=== PATIENT | female | born 1945 | race Caucasian/White ===

== ENCOUNTER 2018-12-14 19:35 | Emergency (ER) | payer MEDICARE, SELFPAY ==
[2018-12-14 19:36] VITALS: BP 142/78; PULSE 121; RESP 18; TEMP 36.3; O2SAT 95; BMI 24.3
--- NOTE | 2018-12-14 20:19 | ED.VISSUMM ---
- ER Visit Summary Date of Service: 12/14/18 Chief Complaint: Laceration History of Present Illness: The patient is a 73 F who cut her right index finger with a kitchen knife prior to arrival. She is left-hand dominant. She suffered a laceration to the right index finger at the DIP joint. She is not on anticoagulants. She is unsure of her last tetanus update. Physical Examination: Vital signs remarkable for heart rate of 121 in triage. Patient sitting upright in bed no acute distress. Right upper extremity examination was a 1 similar laceration of the palmar surface of the hand, index finger DIP joint. She has full range of motion of the digit. Normal cap refill and sensation are noted distally. Test Results: [] Emergency Department Course and Treatment: Right index finger was anesthetized with a digital block, 2 cc 1% lidocaine. Wound is irrigated and closed with 6 simple interrupted sutures of 5-0 nylon. Dressing is applied and wound care as discussed. Tetanus update is provided. Patient is to have sutures removed in 7 days. Treatment Plan: [] Disposition: Discharge Impression: Right index finger laceration status post suture This note was generated with [employer] dictation software. It may contain incorrect words, spelling, and punctuation that were not noted in review of the chart prior to signing ED Disposition - Plan for ED Patient: Disposition: Home or Assisted Living Instructions: ED Laceration Hand Referrals: Monik Rowley MD [Primary Care Provider] - 7 Days for suture removal
[2018-12-14] MEDS: Diphth,Pertuss(Acell),Tet Vac 0.5 ML Vial IM (20:21)
[2018-12-14 20:42] VITALS: RESP 16
== END 2018-12-14 20:44 | disposition home or self-care (01) ==
PROVIDERS: Emergency Provider Emergency Medicine; Family Provider Internal Medicine; PCP Internal Medicine
DX: S61.210A Laceration without foreign body of right index finger without damage to nail, initial encounter (principal); W26.0XXA Contact with knife, initial encounter; Y93.9 Activity, unspecified; Y92.000 Kitchen of unspecified non-institutional (private) residence as the place of occurrence of the external cause; Y99.9 Unspecified external cause status
CPT/HCPCS: 12001; 90715; 99283

== ENCOUNTER → 2021-01-24 11:45 | Outpatient (CLI) | payer MEDICARE, SELFPAY ==
--- NOTE | 2021-01-24 | ASPS_PTH ---
PATIENT: BRADLEY ROTH LOC: [facility]#:[id number] AGE/SX: 79/F ROOM: RE01/24/[address]: Dr. Randy Brito MD : 1945 BED: DIS: SPEC #: [id number] RECD: 01/25/21 11:55 STATUS: PRISCA REPatricia #: [id number] KIRSTY: 01/24/21 00:[address]: Randy Brito DEPT: CYTOLOGY RECD BY: Joshua Nichols ENTERED: 01/25/21 12:13 SP TYPE: ASPIRATION OTHR DR: Dr. Monik Rowley MD Tissues: A - Thyroid gland, NOS B - Thyroid isthmus Procedures: Special Stain Group II Cytology Other HEADER OPERATION: Ultrasound-guided fine needle aspiration, left thyroid and isthmus PRE-OP DIAGNOSIS: Multinodular goiter TISSUE SUBMITTED: A ? Left thyroid slides x12, B ? Isthmus slides x 12 DIAGNOSIS CYTOLOGY A. Fine needle aspiration, left thyroid nodule (smears): Adequate for evaluation. Negative, consistent with benign follicular/colloid nodule. B. Fine needle aspiration, thyroid isthmus (smears): Adequate for evaluation. Negative, consistent with cystic benign follicular/colloid nodule. AM:lacey 01/26/2021 COMMENT Reference is made to the patient?s previous thyroid fine needle aspiration ([id number]) in which changes consistent with cellular and cystic colloid nodule are identified. CYTOLOGY STUDY Slides are reviewed. CYTOLOGY GROSS A - Received are 12 smears labeled with the patient's name and designated per the requisition as left thyroid. Submitted for staining. B - Received are 12 smears labeled with the patient's name and designated per the requisition as isthmus. Submitted for staining. / lacey 01/25/2021 TC:5 CPT: 60362 x2
== END ==
PROVIDERS: PCP Internal Medicine; Visit Provider Surgery
DX: E04.2 Nontoxic multinodular goiter (principal)
CPT/HCPCS: 88161; 88307; 88313

== ENCOUNTER → 2021-04-20 12:27 | Outpatient (CLI) | payer MEDICARE, SELFPAY ==
--- NOTE | 2021-04-20 12:29 | RAD_ITS ---
STUDY: BARIUM ENEMA. REASON FOR EXAM: Female, 75 years old. SCREENING FOR COLON CA. Incomplete colonoscopy. FLUOROSCOPY TIME (if supplied): ( 90 seconds ) minutes/seconds. 16 images were obtained. TECHNIQUE: A spot film was obtained. Following this, barium was introduced retrograde into the rectum. The entire colon was opacified. COMPARISON: None. FINDINGS: On the plasma table operator view, residual fecal material is seen in the rectosigmoid colon. There is gaseous distention of the colon. There is free flow of barium into the colon. The entire colon was opacified. No evidence of antegrade or retrograde obstruction to the flow of contrast. No mass lesion is seen. There is tortuosity of the sigmoid colon. RAD/Barium Enema w/Air Contrast IMPRESSION: Unremarkable barium enema. Electronically Signed: Quentin Patricia MD at 14:50 EDT , Service support ,
== END ==
PROVIDERS: PCP Internal Medicine; Referring Provider Surgery; Visit Provider Surgery
DX: Z12.11 Encounter for screening for malignant neoplasm of colon (principal)
CPT/HCPCS: 74280

== ENCOUNTER 2021-05-26 10:19 | Day surgery (SDC) | payer MEDICARE, SELFPAY ==
[2021-05-26 10:58] VITALS: BP 127/77; PULSE 87; RESP 16; TEMP 36.7; O2SAT 97; BMI 25.2
--- NOTE | 2021-05-26 11:00 | BI_ITS ---
SURGICAL BREAST SPECIMEN RADIOGRAPH CLINICAL: Document presence of tissue clip marker in biopsy specimen. FINDINGS: Specimen shows presence of tissue clip marker. Electronically Signed: Quentin Patricia MD at 12:41 EDT , Service support , BI/Breast Biopsy Specimen
[2021-05-26] MEDS: Lactated Ringers 1,000 ML 100 ML IV (11:02)
--- NOTE | 2021-05-26 11:42 | HP.PCM_ITS ---
History and Physical Date of Admission: 05/26/21 HISTORY AND PHYSICAL - BREAST COMPLAINT ? Sheila Perdue 1945 ? ? REFERRING PHYSICIAN: Monik Rowley MD ? CHIEF COMPLAINT: Intraductal papilloma (primary encounter diagnosis) ? HPI: The patient is a 75 year old female with a complaint of intraductal papilloma. Patient is status post an ultrasound-guided hand-held mammotome breast biopsy of her left breast at the 1 o'clock position which was completed on 04/14/2021. This biopsy result came back as portions of an intraductal papilloma with florid ductal hyperplasia. Patient initially had significant bruising which has subsequently resolved. ? ? PAST MEDICAL HISTORY PAST MEDICAL HISTORY Diagnosis Date ? Nontoxic multinodular goiter ? ? Osteoporosis, unspecified ? ? Unspecified hypothyroidism ? ? Vitamin D Deficiency 11/30/2009 ? ? PAST SURGICAL HISTORY PAST SURGICAL HISTORY Procedure Laterality Date ? COLONOSCOP W/ OR W/O BRSH SPEC ? ? Colonoscopy ? COLONOSCOP W/ OR W/O BRSH SPEC ? 04/16/2016 ? Colonoscopy ? COLONOSCOP W/ OR W/O BRSH SPEC ? 04/20/2021 ? aborted and sent for barium enema due to tortuosity o fcolon ? COLONOSCOPY & POLYPECTOMY ? 03/02/2004 ? hyperplastic polyp ? LIGATE FALLOPIAN TUBE ? ? ? Tubal ligation ? PAST SURGICAL HISTORY OF ? ? ? back surgery frankie placement x 2 ? PAST SURGICAL HISTORY OF ? ? ? [place] feet surgery ? TREAT ECTOPIC PREG,NON REMVAL ? ? ? Ectopic ? ? ? CURRENT MEDICATIONS Current Outpatient Medications Medication Sig Dispense Refill ? MULTIVITAMIN ORAL Take by mouth once daily. ? ? ? Ibandronate (BONIVA) 150 mg tablet Take 1 tablet by mouth once every month. Take in the am with full glass of water on an empty stomach; do NOT eat or lie down for next 30 minutes. 3 tablet 4 ? cholecalciferol (VITAMIN D3) 50 mcg (2,000 unit) tablet Take 1 tablet by mouth once daily. ? ? ? acetaminophen (ARTHRITIS PAIN RELIEF) 650 mg CR tablet Take 650 mg by dionne th every 8 hours as needed. ? ? ? levothyroxine (SYNTHROID) 50 mcg tablet Take one(1) tablet daily except half a pill on Sundays 90 tablet 3 ? ibuprofen (MOTRIN) 200 mg tablet Take 400 mg by mouth as needed. ? ? ? Calcium-Vitamin D3-Vitamin K (VIACTIV) 500-500-40 mg-unit-mcg chew Take 1 tablet by mouth once daily. Up to twice daily ? ? ? THERAPEUTIC MULTIVITAMIN TAB Take one(1) tablet daily. (Patient not taking: ) ? 0 ? No current facility-administered medications for this visit. ? ? ALLERGIES: Patient has no known allergies. ? PERSONAL HISTORY: SOCIAL HISTORY Social History ? Tobacco Use ? Smoking status: Never Smoker ? Smokeless tobacco: Never Used Vaping Use ? Vaping Use: Never used Substance Use Topics ? Alcohol use: No ? Drug use: Never ? FAMILY HISTORY: FAMILY HISTORY FAMILY HISTORY Problem Relation Age of Onset ? Colon Cancer Father ? ? other (malignant polyp) Brother ? ? REVIEW OF SYSTEMS: ?General:???The patient denies fatigue, denies weight loss, denies weight gain, denies feeling hot, and denies feelings of cold. ?Eyes: ?The patient denies glaucoma, denies eye injury/surgery, does not wear glasses or contacts. ?Ear/Nose/Throat: ?The patient denies allergies, denies hayfever, denies ear infections, and denies bloody noses. ?Cardiovascular: ?The patient denies chest pain, denies heart disease, denies high blood pressure,denies cardiac stent, denies prior heart attack, denies irregular heart beat, denies high cholesterol, ?denies poor circulation, denies heart failure, other cardiac issues, denies claudication, denies cold feet, denies peripheral arterial stent. ?Respiratory: ?The patient denies tuberculosis, denies pneumonia, denies frequent cough, denies pulmonary embolism, denies shortness of breath, and denies coughing up blood. ?Gastrointestinal: ?The patient denies difficulty swallowing, denies acid reflux, denies ulcers, denies vomiting, denies jaundice/hepatitis, denies gallbladder problems, denies black or tarry stools, denies hemorrhoids, denies bleeding from rectum, denies diverticulitis, denies constipation, denies diarrhea, denies loss of stool control, and denies hernias. ?Kidney/Bladder: ?The patient denies kidney stones, denies urine infections, and denies bloody urine. ?Skin: ?The patient denies a history of skin cancer, denies bleeding/changing moles, and denies a history of skin rash. ?Neurologic: ?The patient denies a history of epilepsy/convulsions, denies headaches, denies head/spinal injuries, and denies stroke/TIA. ?Psychiatric: ?The patient denies psychiatric medications, denies depression, and denies voices, denies substance abuse. ?Endocrine: ?The patient NOTES thyroid disorders, denies diabetes, and denies hormonal problems. ?Hematologic: ?The patient denies a history of bruising, denies bleeding, and denies anemia, denies blood clots. ?Infections: ?The patient denies a history of measles and mumps, denies rheumatic fever, and denies sexually transmitted diseases. ?Musculoskeletal: ?The patient denies back pain/injury, denies back problems, denies sciatica, denies knee/foot trouble, NOTES arthritis, or denies gout. ? ? When was patient's last Mammogram screening? 09/28/2020 ? PHYSICAL EXAMINATION: ? General: The patient is 75 year old female, well nourished, well hydrated in no acute distress. The patient is oriented to time, place, and person. ? VITALS: Pulse 119, temperature 36.5 ?C (97.7 ?F), SpO2 95 %. There is no height or weight on file to calculate BMI. ? HEENT: Normal cephalic, ataumatic, pupils are equally round, sclera are anicteric, mucous membranes are moist, oropharynx is clear. Neck has no masses, asymmetry or lymphadenopathy. Thyroid is unremarkable. ? Respiratory: Clear to auscultation and percussion. Normal respiratory excursion and pattern. ? Cardiac: Examination is regular rate and rhythm. ? Abdominal exam: Soft, nontender, with no palpable masses. No hepatosplenomegaly. No palpable hernias. ? Rectal exam: exam deferred Extremities: no clubbing, cyanosis or edema. No adenopathy. ? Breast: Visual inspection reveals no retractions, nipple inversion, or skin changes. Palpation of the right breast reveals no dominant or suspicious masses. Palpation of the left breast reveals no dominant or suspicious masses. Axillary exam demonstrates no suspicious masses in either the left or right axilla. There is no nipple discharge expressed from either the left or right breast. ? LABORATORY VALUES: As Noted ? RADIOLOGIC STUDIES: As Noted ? Assessment IMPRESSION: Intraductal papilloma (primary encounter diagnosis) ? PLAN: I plan to perform a stereotactic wire localization of the left breast with wire localization excisional breast biopsy in the OR.. The planned surgical procedure was discussed extensively with the patient. The risks, benefits, anticipated outcomes and possible complications were mentioned. My staff has also explained the procedure in understandable terms and the patient was given the option to take printed material concerning the planned procedure. The patient had the opportunity to ask questions concerning the planned procedure. The patient freely consents to the planned procedure. ? ? Diagnoses: (D36.9) Intraductal papilloma (primary encounter diagnosis) ? My findings have been communicated to Dr. Monik Rowley MD via shared medical record. This note will be forwarded to Dr. Monik Rowley MD. ? Return to Clinic: The patient is instructed to follow-up with me 1 week post operatively. ? COVID (Procedure Consent) Procedure Criteria ? Procedure Criteria: Yes Elective The surgeon/proceduralist and patient have discussed in detail the risk of exposure to and/or potential harm posed by the COVID-19 virus with having a surgery/procedure at this time versus the risk of? delaying the surgery/procedure. It is not possible to know either the risk of delaying the surgery or procedure or chance of getting an infection with perfect accuracy, but a joint decision was made between the patient and the surgeon/proceduralist ?to proceed at this time with the scheduled surgery/procedure as indicated on the consent form. ? ? Randy Brito III, MD I have re-examined the patient. There are no clinical changes since date of exam.
[2021-05-26] MEDS: Cefazolin 2 GM in 0.9% Normal Saline 100 ML IV (11:55)
--- NOTE | 2021-05-26 12:24 | BREAST_PTH ---
PATIENT: BRADLEY ROTH LOC: [facility] [place] U#:[id number] AGE/SX: 75/F ROOM: RE05/26/[address]: Dr. Randy Brito MD : 1945 BED: DIS: 05/26/2021 SPEC #: [id number] RECD: 05/26/21 12:29 STATUS: PRISCA REPatricia #: [id number] KIRSTY: 05/26/21 12:[address]: Randy Brito DEPT: SURGICAL PATHOLOGY RECD BY: Jerri Felipe ENTERED: 05/26/21 12:50 SP TYPE: BREAST OTHR DR: Dr. Monik Rowley MD Tissues: Left breast, NOS Procedures: Surgery Specimen Level V HEADER OPERATION: Excisional breast biopsy needle localization PRE-OP DIAGNOSIS: Left intraductal papilloma TISSUE SUBMITTED: Left intraductal papilloma, needle localization MICROSCOPIC DIAGNOSIS Left breast, excisional biopsy with needle localization: Changes consistent with previous biopsy site. Focal changes suggestive of intraductal papilloma adjacent to the previous biopsy site. Focal intraductal hyperplasia without atypia. Negative for malignancy. JALIL:lacey 05/31/2021 COMMENT Case has been reviewed in consultation with Dr. Ghotra who concurs with the above diagnosis. IDC:AM MICROSCOPIC DESCRIPTION Slides are reviewed. GROSS DESCRIPTION Received in fixative is one container labeled with the patient's name and designated left breast. The specimen consists of four irregular fragments of do-yellow fatty tissue ranging in size from 1 to 5 cm. The largest fragment contains a wire and a small ellipse of skin. The skin fragment measures 1 x 0.5 cm. No orientation is provided. Serial sections do not reveal distinct mass lesions. The specimen is serially sectioned and totally submitted in eight cassettes. / AM:lacey 05/29/21 TC:5 CPT: 43950
--- NOTE | 2021-05-26 12:26 | OP.PCM_ITS ---
Problems Associated Problem List Diagnoses (1) Intraductal papilloma: Report of Operation Date of Procedure: 05/26/21 Pre-Operative Diagnosis: Intraductal papilloma Post-Operative Diagnosis: Same Surgery/Procedure Performed:: 1. Stereotactic wire localization of intraductal papilloma 2. Wire localization excisional breast biopsy of an intraductal papilloma left side. Surgeon: Randy Brito math and science division chair: Irwin Livingston Type of Anesthesia: General Anesthesiologist: River Hogan Estimated Blood Loss (mL): < 25 cc Description of Procedure: Patient was brought into the mammography unit. Placed in the supine position. Left breast was brought down through the opening lateral to medial view was obtained. Clip was identified. ?15 degree views were obtained. I targeted on the clip. Prepped the breast with Betadine. Injected 1% lidocaine plain. Placed a needle and took 2 more stereo view showing the area to be adequately targeted. Patient was taken out standard mammograms were obtained and she was sent to the operating room. In the operating room she was placed in the supine position. Under excellent general anesthetic. Left breast was sterilely prepped and draped in the usual fashion. Local was injected. I made an elliptical incision around the previous biopsy site extended it both in a medial and lateral fashion. Dissected down removed the lesion identified the clip as well as the intraductal papilloma and sent all of this tissue to x-ray for confirmation. I inspected the general area no further abnormal tissue was identified. I brought the wound together with subcu of 2-0 Vicryl deep dermals with 3-0 Vicryl then a running 4-0 Monocryl. Steri-Strips were applied sterile dressings were applied and the patient tolerated the procedure well. X-rayed the specimen I had the clip as well as the wire into the specimen its elf. Admit VTE Documentation VTE Present on Admission: No VTE Mechan Device Prophylaxis: SCD's VTE Pharm Prophylaxis ordered?: No Reason prophylaxis not ordered:: Procedure Not Indicated
--- NOTE | 2021-05-26 12:32 | DCINST_ITS ---
Discharge Instructions Procedure Breast Biopsy Diet Discharge Diet: No restrictions Activity Discharge Activity: Return to Normal Activity May shower in (days): 3 Dressing / Incision Remove Dressing in: 3 days (leave Dermabond in place.) Follow Up Care Please Follow Up With: Randy Brito MD When: Call office to schedule an appointment to be seen in one week. Test Results: Test results from this visit will be discussed in further detail at your follow-up appointment, if applicable. Discharge Plan Admission Attending Provider: Randy Brito Primary Care Provider: Monik Rowley Discharge Orders/Prescriptions Prescriptions: New oxycodone-acetaminophen [Endocet] 5-325 mg tablet 1 tab PO Q6H PRN (Reason: pain) 5 Days Qty: 20 RF: 0 Continued ibandronate 150 MG tablet 150 mg PO QMONTH RF: 0 calcium carbonate-vitamin D3 600 mg(1,500mg) -200 unit Tablet 1 tab PO DAILY RF: 0 levothyroxine 50 mcg Tablet 50 mcg PO DAILY RF: 0 multivitamin Capsule 1 cap PO DAILY RF: 0 cholecalciferol (vitamin D3) [Vitamin D3] 25 mcg (1,000 unit) Capsule 25 mcg PO DAILY RF: 0 melatonin 10 mg Capsule 10 mg PO QHS PRN (Reason: Sleep) RF: 0 turmeric 400 mg Capsule 400 mg PO DAILY RF: 0 Referrals / Follow Up: Monik Rowley MD [Primary Care Provider] - Theresa Huynh PA-C [PHYSICIAN FISH PROCESSING SUPERVISOR] - Disposition Discharge Orders: Discharge Patient (Routine); Ordered 05/26/21 Ordered By: Dr. Randy Brito
[2021-05-26] MEDS: Bupivacaine Mpf 0.5% 30 ML VIAL (12:39)
[2021-05-26 12:48] VITALS: BP 119/73; BP 127/77; PULSE 105; RESP 18; TEMP 36.9; O2SAT 96
[2021-05-26 13:00] VITALS: BP 112/67; BP 127/77; PULSE 103; RESP 16; O2SAT 93
[2021-05-26 13:15] VITALS: BP 108/64; BP 127/77; PULSE 99; RESP 16; O2SAT 94
[2021-05-26 13:27] VITALS: BP 108/67; BP 127/77; PULSE 96; RESP 16; TEMP 36.3; O2SAT 93
[2021-05-26 14:38] VITALS: BP 110/72; BP 127/77; PULSE 95; RESP 16; TEMP 36.2; O2SAT 94
== END 2021-05-26 14:41 ==
LOC: SDC 10:20 → AC 10:21
PROVIDERS: PCP Internal Medicine; Referring Provider Surgery; Visit Provider Surgery
DX: D24.2 Benign neoplasm of left breast (principal); E03.9 Hypothyroidism, unspecified; M81.0 Age-related osteoporosis without current pathological fracture; Z87.59 Personal history of other complications of pregnancy, childbirth and the puerperium
CPT/HCPCS: 00400; 19125; 19281; 76098; 88305; 88307; J7120; J2405